=== PATIENT | male | born 1995 | race Two or more races ===

== ENCOUNTER 2023-05-27 14:15 | Emergency (ER) | payer MEDICAID ==
[~2023-05-27] VITALS: Ht 180.3 cm; Wt 83.9 kg
[2023-05-27 14:27] VITALS: BP 122/64; TEMP 98.2
[2023-05-27] MEDS ORDERED: RISP1TAB97 PO (15:05)
[2023-05-27] MEDS ORDERED: FLUO20CA42 PO (15:05)
[2023-05-27 15:08] VITALS: O2SAT 97
== END 2023-05-27 15:08 | disposition home or self-care (01) ==
LOC: ER 14:22
DX: F32.A Depression, unspecified (principal); Z76.0 Encounter for issue of repeat prescription

== ENCOUNTER 2023-11-26 08:08 | Emergency (ER) | payer MEDICAID, OTHER ==
[~2023-11-26] VITALS: Ht 180.3 cm; Wt 79.4 kg
[~2023-11-26 08:08] MED LIST: FLUO20CA42 PO; RISP1TAB97 PO
[2023-11-26] MEDS ORDERED: KETOROLAC TROMETHAMINE INJ 30 MG/ML VIAL ONE (08:24)
[2023-11-26] MEDS ORDERED: dexaMETHasone SOD PHOSPHATE 1 ML ONE (08:24)
[2023-11-26] MEDS ORDERED: CLINDAMYCIN HCL 150 MG CAPSULE ONE (08:24)
[2023-11-26] MEDS: dexaMETHasone SOD PHOSPHATE 10 MG/ML VIAL IM ONE (08:27)
[2023-11-26] MEDS: KETOROLAC TROMETHAMINE INJ 30 MG/ML VIAL IM ONE (08:28)
[2023-11-26] MEDS: CLINDAMYCIN HCL 150 MG CAPSULE PO ONE (08:30)
[2023-11-26] MEDS ORDERED: CLIN300C12 PO (08:38)
[2023-11-26 08:40] VITALS: BP 120/72; TEMP 98.4; O2SAT 99
== END 2023-11-26 08:41 | disposition home or self-care (01) ==
LOC: ER 08:11
DX: J02.9 Acute pharyngitis, unspecified (principal); F32.A Depression, unspecified; Z79.899 Other long term (current) drug therapy
CPT/HCPCS: 99284; 96372 ×2; J1100; J1885